=== PATIENT | female | born 1985 | race American Indian/Alaskan Native ===

== ENCOUNTER 2016-05-23 18:25 | Emergency (ER) | payer SELFPAY ==
[2016-05-23 19:15] LABS: Basophils % (Auto) 0.6 % (0.0-1.8); Eosinophils % (Auto) 0.9 % (0.0-4.3); Hematocrit 35.3 % (30.3-42.9); Mean Corpuscular HGB Conc 31 % (30-34); Mean Corpuscular Volume 73 fl (79-97); Platelet Count 460 K/mm3 (140-440); Red Blood Count 4.83 M/mm3 (3.65-5.03); Red Cell Distribution Width 16.7 % (13.2-15.2); White Blood Count 7.8 K/mm3 (4.5-11.0)
[2016-05-23 19:16] LABS: Mean Corpuscular Hemoglobin 23 pg (28-32)
[2016-05-23 19:37] LABS: Alanine Aminotransferase 30 units/L (7-56); Albumin 4.1 g/dL (3.9-5); Albumin/Globulin Ratio 1.2 %; Alkaline Phosphatase 96 units/L (35-129); Bilirubin,Total 0.2 mg/dL (0.1-1.2); Blood Urea Nitrogen 9 mg/dL (7-17); Calcium 8.7 mg/dL (8.4-10.2); Carbon Dioxide 24 mmol/L (22-30); Glucose 101 mg/dL (65-100); Lipase 106 units/L (13-60); Total Protein 7.6 g/dL (6.3-8.2)
[2016-05-23 19:38] LABS: Anion Gap 18 mmol/L; Chloride 99.6 mmol/L (98-107); Sodium 138 mmol/L (137-145)
[2016-05-23 23:00] LABS: Bacteria,Urine 1+ /HPF (Negative); Bilirubin,Urine NEG (Negative); Blood,Urine NEG (Negative); Ketones,Urine NEG (Negative); Leukocyte Esterase,Urine NEG (Negative); Nitrite,Urine NEG (Negative); Protein,Urine <15 mg/dL mg/dL (Negative); RBC,Urine < 1.0 /HPF (0.0-6.0); Urobilinogen,Urine < 2.0 mg/dL (<2.0)
[2016-05-23 23:04] LABS: WBC,Urine < 1.0 /HPF (0.0-6.0)
[2016-05-24 01:27] VITALS: BP 124/79
[2016-05-24] MEDS ORDERED: DILAUDID IV ONE (01:48)
[2016-05-24] MEDS ORDERED: ZOFRAN IV ONE (01:48)
[2016-05-24] MEDS ORDERED: NACL 0.9% 1000 ML 1,000 ML IV ONE (01:49)
[2016-05-24] MEDS ORDERED: PROTONIX IV ONE (01:50)
[2016-05-24] MEDS ORDERED: BENADRYL IV ONE (03:16)
--- NOTE | 2016-05-24 05:18 | Emergency Department Report ---
ED Abdominal Pain HPI - General Chief Complaint: Abdominal Pain Stated Complaint: ABD PAIN/WRIST SWELLING Time Seen by Provider: 05/24/16 01:36 Source: patient Mode of arrival: Ambulatory Limitations: No Limitations - History of Present Illness Initial Comments: 30 yo female with past medical history GERD, pancreatitis, and alcohol abuse presents to the hospital complaining of epigastric pain, nausea, and vomiting. Pain to upper abdomen for the past week. Pain is intermittent, sore, radiates to the back. Rated 8/10 in intensity. Worse with palpation. Patient vomiting on and off. She noticed some blood-streaked vomitus yesterday. Denies melena, hematochezia, fever, or diarrhea. The pain of pancreatitis in the past. Patient is pancreatitis due to alcohol use. Patient states she has been under a lot of stress and did drink several days ago. No previous abdominal surgery. Patient taken Tylenol and Goody powders as stated for pain. Severity scale (0 -10): 4 - Related Data Previous Rx's Medication Instructions Recorded Last Taken Type HYDROcodone/APAP 5-325 [[place] 1 each PO Q6HR PRN #20 tablet 05/24/16 Unknown Rx 5/325] Omeprazole Magnesium [PriLOSEC Otc] 20 mg PO QDAY #30 tablet. 05/24/16 Unknown Rx Ondansetron [Zofran Odt] 4 mg PO Q8HR PRN #20 tab.rapdis 05/24/16 Unknown Rx Allergies Allergy/AdvReac Type Severity Reaction Status Date / Time No Known Allergies Allergy Verified 05/24/16 01:29 ED Review of Systems ROS: Stated complaint: ABD PAIN/WRIST SWELLING Other details as noted in HPI Comment: All other systems reviewed and negative Other: Constitutional: No fevers chills Eyes: No eye pain visual changes ENT: No ear pain or throat pain Neck: Denies pain Respiratory: Denies cough wheezing shortness of breath Cardiovascular: Denies chest pain, palpitations, syncope GI: as per hpi : Denies dysuria Musculoskeletal: Denies back pain Skin: Denies rash, lesions, erythema Neurologic: Denies headache, numbness, weakness Psychiatric: Denies suicidal ideation, hallucinations ED Past Medical Hx - Past Medical History Previous Medical History?: Yes Hx GERD: Yes Additional medical history: Pancreatitis - Surgical History Past Surgical History?: Yes Additional Surgical History: Removal of Bartholin cyst - Social History Smoking Status: Current Every Day Smoker Substance Use Type: Alcohol - Medications Home Medications: Home Medications Medication Instructions Recorded Confirmed Last Taken Type HYDROcodone/APAP 5-325 [[place] 1 each PO Q6HR PRN #20 tablet 05/24/16 Unknown Rx 5/325] Omeprazole Magnesium [PriLOSEC Otc] 20 mg PO QDAY #30 tablet. 05/24/16 Unknown Rx Ondansetron [Zofran Odt] 4 mg PO Q8HR PRN #20 tab.rapdis 05/24/16 Unknown Rx ED Physical Exam - General Limitations: No Limitations - Other Other exam information: General: No limitations, patient is alert in no acute distress Head exam: Atraumatic, normocephalic Eyes exam: Normal appearance, pupils equal reactive to light, extraocular movements intact ENT: Moist mucous membrane, normal oropharynx Neck exam: Normal inspection, full range of motion, no meningismus nontender Respiratory exam: Clear to auscultation bilateral, no wheezes, rales, crackles Cardiovascular: Normal rate and rhythm, normal heart sounds Abdomen: Soft, nondistended, epigastric tenderness, with normal bowel sounds, no rebound, or guarding Rectal: Guaiac negative brown stool Extremity: Full range of motion normal inspection no deformity Back: Normal Inspection, full range of motion, no tenderness Neurologic: Alert, oriented x3, cranial nerves intact, no motor or sensory deficit Psychiatric: normal affect, normal mood Skin: Warm, dry, intact ED Course Vital Signs 05/23/16 05/24/16 18:36 01:26 Temperature 98.4 F Pulse Rate 81 74 Respiratory 20 16 Rate Blood Pressure 139/79 Blood Pressure 124/79 [Left] O2 Sat by Pulse 100 95 Oximetry - Reevaluation(s) Reevaluation #1: 05/24/16 05:26 Patient treated with Dilaudid, Protonix, normal saline, Zofran. After receiving Dilaudid patient didn't stay she is allergic and was given Benadryl for itching. No signs of rash or airway compromise 05/24/16 05:27 ED Medical Decision Making - Lab Data Result diagrams: 05/23/16 18:54 05/23/16 18:54 Lab Results 05/23/16 05/23/16 05/23/16 Range/Units 18:54 18:54 21:30 WBC 7.8 (4.5-11.0) K/mm3 RBC 4.83 (3.65-5.03) M/mm3 Hgb 11.0 (10.1-14.3) gm/dl Hct 35.3 (30.3-42.9) % MCV 73 L (79-97) fl MCH 23 L (28-32) pg MCHC 31 (30-34) % RDW 16.7 H (13.2-15.2) % Plt Count 460 H (140-440) K/mm3 Lymph % (Auto) 28.5 (13.4-35.0) % [place]man % (Auto) 6.9 (0.0-7.3) % Eos % (Auto) 0.9 (0.0-4.3) % Baso % (Auto) 0.6 (0.0-1.8) % Lymph # 2.2 (1.2-5.4) K/mm3 Whitman # 0.5 (0.0-0.8) K/mm3 Eos # 0.1 (0.0-0.4) K/mm3 Baso # 0.0 (0.0-0.1) K/mm3 Seg Neutrophils % 63.1 (40.0-70.0) % Seg Neutrophils # 4.9 (1.8-7.7) K/mm3 Sodium 138 (137-145) mmol/L Potassium 4.0 (3.6-5.0) mmol/L Chloride 99.6 (98-107) mmol/L Carbon Dioxide 24 (22-30) mmol/L Anion Gap 18 mmol/L BUN 9 (7-17) mg/dL Creatinine 0.9 (0.7-1.2) mg/dL Estimated GFR > 60 ml/min BUN/Creatinine Ratio 10.00 % Glucose 101 H (65-100) mg/dL Calcium 8.7 (8.4-10.2) mg/dL Total Bilirubin 0.2 (0.1-1.2) mg/dL AST 22 (5-40) units/L ALT 30 (7-56) units/L Alkaline Phosphatase 96 (35-129) units/L Total Protein 7.6 (6.3-8.2) g/dL Albumin 4.1 (3.9-5) g/dL Albumin/Globulin Ratio 1.2 % Lipase 106 H (13-60) units/L Urine Color Colorless (Yellow) Urine Turbidity Clear (Clear) Urine pH 7.0 (5.0-7.0) Ur Specific [place] 1.001 L (1.003-1.030) Urine Protein <15 mg/dl (Negative) mg/dL Urine Glucose (UA) Neg (Negative) mg/dL Urine Ketones Neg (Negative) mg/dL Urine Blood Neg (Negative) Urine Nitrite Neg (Negative) Urine Bilirubin Neg (Negative) Urine Urobilinogen < 2.0 (<2.0) mg/dL Ur Leukocyte Esterase Neg (Negative) Urine WBC (Auto) < 1.0 (0.0-6.0) /HPF Urine RBC (Auto) < 1.0 (0.0-6.0) /HPF U Epithel Cells (Auto) < 1.0 (0-13.0) /HPF Urine Bacteria (Auto) 1+ (Negative) /HPF - Medical Decision Making Patient's lab work unremarkable with exception of slight elevation of lipase. Likely due to his chronic pancreatitis versus gastritis induced by alcohol. Patient advised to discontinue alcohol use. We'll treat symptomatically since vomiting is intermittent. Advised not to take NSAIDs or aspirin's - Differential Diagnosis pancreatitis, gastritis, hepatitis Critical Care Time: No Critical care attestation.: If time is entered above; I have spent that time in minutes in the direct care of this critically ill patient, excluding procedure time. ED Disposition Clinical Impression: Epigastric pain, Hx of pancreatitis, Alcohol abuse, Vomiting Disposition: DISCHARGED TO HOME OR SELFCARE Is pt being admited?: No Does the pt Need Aspirin: No Condition: Stable Instructions: Gastritis (ED), Pancreatitis (ED), Abuse of Alcohol (ED) Additional Instructions: Take the medication as needed. Return if symptoms worsen. Prescriptions: HYDROcodone/APAP 5-325 [[place] 5/325] 1 each PO Q6HR PRN #20 tablet PRN Reason: Pain Omeprazole Magnesium [PriLOSEC Otc] 20 mg PO QDAY #30 tablet. Ondansetron [Zofran Odt] 4 mg PO Q8HR PRN #20 tab.rapdis PRN Reason: Nausea And Vomiting Referrals: [facility] [Provider Group] - 3-5 Days DREW OROZCO MD [Staff Physician] - 3-5 Days RAHEL DUBON MD [Staff Physician] - 3-5 Days (GI doctor) Time of Disposition: 05:18
== END 2016-05-24 05:40 | disposition home or self-care (01) ==
LOC: ED 18:25
DX: R10.13 Epigastric pain (principal); R10.10 Upper abdominal pain, unspecified; R11.2 Nausea with vomiting, unspecified; K85.90 Acute pancreatitis without necrosis or infection, unspecified; K21.9 Gastro-esophageal reflux disease without esophagitis; F17.200 Nicotine dependence, unspecified, uncomplicated
CPT/HCPCS: 36415; 80053; 81001; 82271; 83690; 85025; 96361; 96374; 96375; 99283; C9113; J1170; J1200; J2405; J7030

== ENCOUNTER 2016-06-15 05:54 | Emergency (ER) | payer SELFPAY ==
[2016-06-15 07:01] LABS: Basophils % (Auto) 0.8 % (0.0-1.8); Eosinophils % (Auto) 2.6 % (0.0-4.3); Hematocrit 33.1 % (30.3-42.9); Hemoglobin 10.5 gm/dl (10.1-14.3); Mean Corpuscular HGB Conc 32 % (30-34); Mean Corpuscular Volume 72 fl (79-97); Platelet Count 462 K/mm3 (140-440); Red Blood Count 4.59 M/mm3 (3.65-5.03); Red Cell Distribution Width 17.3 % (13.2-15.2); White Blood Count 6.7 K/mm3 (4.5-11.0)
[2016-06-15 07:02] LABS: Mean Corpuscular Hemoglobin 23 pg (28-32)
[2016-06-15 07:15] LABS: Alanine Aminotransferase 30 units/L (7-56); Albumin 4.1 g/dL (3.9-5); Albumin/Globulin Ratio 1.2 %; Alkaline Phosphatase 94 units/L (35-129); Anion Gap 18 mmol/L; BUN/Creatinine Ratio 15.55; Bilirubin,Total 0.2 mg/dL (0.1-1.2); Blood Urea Nitrogen 14 mg/dL (7-17); Calcium 8.9 mg/dL (8.4-10.2); Carbon Dioxide 24 mmol/L (22-30); Chloride 102.4 mmol/L (98-107); Glucose 114 mg/dL (65-100); Lipase 114 units/L (13-60); Potassium 4.3 mmol/L (3.6-5.0); Sodium 140 mmol/L (137-145); Total Protein 7.5 g/dL (6.3-8.2)
[2016-06-15 08:01] LABS: Bacteria,Urine 2+ /HPF (Negative); Bilirubin,Urine NEG (Negative); Blood,Urine NEG (Negative); Ketones,Urine NEG (Negative); Leukocyte Esterase,Urine NEG (Negative); Mucus,Urine FEW /HPF; Nitrite,Urine NEG (Negative); Protein,Urine <15 mg/dL mg/dL (Negative); Urobilinogen,Urine < 2.0 mg/dL (<2.0)
[2016-06-15] MEDS ORDERED: NACL 0.9% 1000 ML 1,000 ML IV ONE (09:23)
[2016-06-15] MEDS ORDERED: MORPHINE IV ONE (09:23)
[2016-06-15] MEDS ORDERED: ZOFRAN IV ONE (09:26)
[2016-06-15 09:45] VITALS: BP 113/54
[2016-06-15] MEDS ORDERED: DILAUDID PO ONE (10:00)
[2016-06-15] MEDS ORDERED: ZOFRAN PO ONE (10:00)
[2016-06-15] MEDS ORDERED: NORCO 7.5/325 PO ONE (10:10)
[2016-06-15] MEDS ORDERED: ZOFRAN ODT ONE (10:23)
[2016-06-15] MEDS ORDERED: ZOFRAN ODT PO ONE (10:33)
--- NOTE | 2016-06-21 19:36 | Emergency Department Report ---
Entered by GUIDO GARCÍA, acting as scribe for VARGHESE ROSA PA. ED Abdominal Pain HPI - General Chief Complaint: Abdominal Pain Stated Complaint: ABDOMINAL PAIN Time Seen by Provider: 06/15/16 09:15 Source: patient Mode of arrival: Ambulatory Limitations: No Limitations - History of Present Illness Initial Comments: 30 y/o female with PMHx of pancreatitis, presents to the ED via EMS c/o epigastric abdominal pain beginning 3 days ago. The patient states the symptoms are similar to prior pancreatitis flares, and states she still consumes EtOH. Associated symptoms of nausea, vomiting, diarrhea, dizziness (like the room is "spinning"), chills, and throat congestion, but she denies chest pain, SOB, cough, fever, weakness, numbness, and syncope. Secondary c/o right foot pain and swelling beginning 2 days ago. The patient denies known acute trauma, but states she believes there is an abrasion on the bottom of the right foot. The patient denies having a PCP, stating that she just moved to this area 3 months ago. Re-evaluated patient. She does report that she has a history of psychosis and has not seen a mental health provider in a while. She reports that she was supposed to be on medication but not sure what the name of it. She will light for us to refer her to mental health as well. MD Complaint: abdominal pain -: days(s) (3 days ago) Location: epigastric Radiation: none Migration to: no migration Severity: moderate Consistency: constant Improves With: nothing Worsens With: nothing Context: other (patient has Hx of pancreatitis, continues to consume EtOH) Associated Symptoms: nausea, vomiting, diarrhea, chills, other (dizziness (like the room is spinning)). denies: fever, syncope - Related Data Previous Rx's Medication Instructions Recorded Last Taken Type HYDROcodone/APAP 5-325 [[place] 1 each PO Q6HR PRN #20 tablet 05/24/16 Unknown Rx 5/325] Omeprazole Magnesium [PriLOSEC Otc] 20 mg PO QDAY #30 tablet. 05/24/16 Unknown Rx Ondansetron [Zofran Odt] 4 mg PO Q8HR PRN #20 tab.deborah 05/24/16 Unknown Rx Ibuprofen [Motrin 600 MG tab] 600 mg PO Q8H PRN #30 tablet 06/15/16 Unknown Rx Allergies Allergy/AdvReac Type Severity Reaction Status Date / Time hydromorphone HCl Allergy Itching Verified 06/15/16 10:10 [From Dilaudid] phenazopyridine HCl Allergy Hives Verified 06/15/16 10:10 [From Pyridium] sulfamethoxazole Allergy Itching Verified 06/15/16 10:10 [From Bactrim] trimethoprim [From Bactrim] Allergy Itching Verified 06/15/16 10:10 ED Review of Systems Comment: All other systems reviewed and negative Constitutional: chills. denies: fever ENT: other ("throat congestion") Respiratory: denies: cough, shortness of breath Cardiovascular: denies: chest pain Gastrointestinal: abdominal pain (epigastric area), nausea, vomiting, diarrhea Musculoskeletal: other (right foot pain and swelling, possible abrasion to the bottom of the right foot) Skin: denies: rash Neurological: other (dizziness (described as the room spinning), denies syncope) . denies: weakness, numbness ED Past Medical Hx - Past Medical History Previous Medical History?: Yes Hx GERD: Yes Additional medical history: Pancreatitis - Surgical History Past Surgical History?: Yes Additional Surgical History: Removal of Bartholin cyst - Social History Smoking Status: Current Every Day Smoker Substance Use Type: Alcohol - Medications Home Medications: Home Medications Medication Instructions Recorded Confirmed Last Taken Type HYDROcodone/APAP 5-325 [[place] 1 each PO Q6HR PRN #20 tablet 05/24/16 Unknown Rx 5/325] Omeprazole Magnesium [PriLOSEC Otc] 20 mg PO QDAY #30 tablet. 05/24/16 Unknown Rx Ondansetron [Zofran Odt] 4 mg PO Q8HR PRN #20 tab.alexdis 05/24/16 Unknown Rx Ibuprofen [Motrin 600 MG tab] 600 mg PO Q8H PRN #30 tablet 06/15/16 Unknown Rx ED Physical Exam - General Limitations: No Limitations - Other Other exam information: ENERAL: Patient is alert and oriented x 3. No apparent distress, normal gait, atraumatic. HEAD: Head is normocephalic and atraumatic. EYES: Extraocular movements are intact. Pupils are equal, round, and reactive to light and accommodation. EARS: Symmetrical, atraumatic, non tender, ear canal clear with moderate cerumen , tympanic membrane non inflamed. Gross auditory nml bilaterally. NOSE: Nose symmetrical, nontender. Nares appeared normal. MOUTH:Mouth is well hydrated and without lesions. Mucous membranes are moist. Uvula midline. Tongue not elevated. Posterior pharynx clear, no exudate or lesions. Tonsils are not erythematous or swollen. Patent airway. NECK: Supple. Non edematous, no carotid bruits. No lymphadenopathy or thyromegaly. LUNGS: Symmetrical with respiration. No wheezing, rales or crackles, CTAB. HEART: Regular rate and rhythm with normal S1/S2 present. No murmurs, rubs, or gallops. ABDOMEN: Soft, nondistended. Diffusely tender with mild guarding. No rebound tenderness. No organomegaly was noted. Positive bowel sounds. No CVA tenderness. EXTREMITIES/MUSCULOSKELETAL: Full ROM bilaterally. UE/LE Pulses 2+ bilaterally. LE and UE 5+ strength bilaterally SKIN: Warm and dry. No lesions, ulceration or induration present. Noted there is swelling and warmth to the right foot, but no crepitus or fluctuance. No open wound and no abrasion or laceration at the site. There is a skin crease on the bottom of the right foot where the patient believes there is an open wound. NEUROLOGIC: No focal deficit., ED Course Vital Signs 06/15/16 06/15/16 06:00 09:45 Temperature 97.9 F 98 F Pulse Rate 98 H 84 Respiratory 18 18 Rate Blood Pressure 132/75 113/54 [Right] O2 Sat by Pulse 100 98 Oximetry ED Medical Decision Making - Lab Data Result diagrams: 06/15/16 06:46 06/15/16 06:46 - Medical Decision Making Patient was evaluated by the provider in fast track. 30 y/o female presents to the ED c/o epigastric abdominal pain beginning 3 days ago. The patient states the current symptoms are consistent with prior pancreatitis flareups. The patient's labs show Discussed with the patient the need to follow up with a PCP as referred, and to return to the ED if the patient's symptoms worsen or return. Patient states understanding and will follow instructions. Vital signs stable, patient is in no acute distress. ED Disposition Clinical Impression: Elevated lipase Abdominal pain Qualifiers: Abdominal location: epigastric Qualified Code(s): R10.13 - Epigastric pain Disposition: DISCHARGED TO HOME OR SELFCARE Is pt being admited?: No Does the pt Need Aspirin: No Condition: Stable Instructions: Abdominal Pain (ED) Prescriptions: Ibuprofen [Motrin 600 MG tab] 600 mg PO Q8H PRN #30 tablet PRN Reason: Pain Referrals: PRIMARY CARE, [Primary Care Provider] - 3-5 Days [facility] [Outside] - 3-5 Days [facility] [Outside] - 3-5 Days [facility] [Provider Group] - 3-5 Days [facility] [Provider Group] - 3-5 Days This documentation as recorded by the RAQUEL martínez GRACE,accurately reflects the service I personally performed and the decisions made by me,VARGHESE ROSA PA.
== END 2016-06-15 11:23 | disposition home or self-care (01) ==
LOC: ED 05:54
DX: R74.8 Abnormal levels of other serum enzymes (principal); R10.13 Epigastric pain; K21.9 Gastro-esophageal reflux disease without esophagitis; F17.200 Nicotine dependence, unspecified, uncomplicated
CPT/HCPCS: 36415; 80053; 81001; 83690; 84703; 85025; 99283; Q0162; J2270; J2405; J7030

== ENCOUNTER 2016-06-24 08:19 | Emergency (ER) | payer SELFPAY ==
[2016-06-24 08:54] VITALS: BP 125/77
[2016-06-24 09:20] LABS: Urine Drugs of Abuse Note Disclamer
[2016-06-24 09:29] LABS: Bacteria,Urine 1+ /HPF (Negative); Bilirubin,Urine NEG (Negative); Blood,Urine NEG (Negative); Ketones,Urine NEG (Negative); Leukocyte Esterase,Urine NEG (Negative); Mucus,Urine FEW /HPF; Nitrite,Urine NEG (Negative); Protein,Urine <15 mg/dL mg/dL (Negative); Urobilinogen,Urine < 2.0 mg/dL (<2.0)
== END 2016-06-24 09:12 | disposition left against medical advice (07) ==
LOC: EEVIPCON 08:19 → ED 08:19
DX: R10.9 Unspecified abdominal pain (principal); R11.10 Vomiting, unspecified; R44.0 Auditory hallucinations; Z53.21 Procedure and treatment not carried out due to patient leaving prior to being seen by health care provider
CPT/HCPCS: 80307; 81001

== ENCOUNTER 2016-07-21 09:20 | Emergency (ER) | payer SELFPAY ==
[2016-07-21 09:33] VITALS: BP 124/76
[2016-07-21 10:26] LABS: Basophils % (Auto) 0.5 % (0.0-1.8); Eosinophils % (Auto) 1.3 % (0.0-4.3); Hematocrit 32.3 % (30.3-42.9); Hemoglobin 9.9 gm/dl (10.1-14.3); Mean Corpuscular HGB Conc 31 % (30-34); Mean Corpuscular Hemoglobin 22 pg (28-32); Mean Corpuscular Volume 71 fl (79-97); Platelet Count 449 K/mm3 (140-440); Red Blood Count 4.58 M/mm3 (3.65-5.03); Red Cell Distribution Width 18.2 % (13.2-15.2); White Blood Count 8.7 K/mm3 (4.5-11.0)
[2016-07-21 10:40] LABS: Bacteria,Urine 1+ /HPF (Negative); Bilirubin,Urine NEG (Negative); Blood,Urine NEG (Negative); Ketones,Urine NEG (Negative); Leukocyte Esterase,Urine NEG (Negative); Mucus,Urine FEW /HPF; Nitrite,Urine NEG (Negative); Protein,Urine <15 mg/dL mg/dL (Negative); Urobilinogen,Urine < 2.0 mg/dL (<2.0)
[2016-07-21 10:42] LABS: Alanine Aminotransferase 50 units/L (7-56); Albumin 3.8 g/dL (3.9-5); Albumin/Globulin Ratio 1.2 %; Alkaline Phosphatase 93 units/L (35-129); Anion Gap 18 mmol/L; BUN/Creatinine Ratio 21.11; Bilirubin,Total < 0.2 mg/dL (0.1-1.2); Blood Urea Nitrogen 19 mg/dL (7-17); Calcium 8.7 mg/dL (8.4-10.2); Carbon Dioxide 22 mmol/L (22-30); Glucose 102 mg/dL (65-100); Lipase 104 units/L (13-60); Potassium 4.6 mmol/L (3.6-5.0); Sodium 138 mmol/L (137-145)
== END 2016-07-21 10:21 | disposition left against medical advice (07) ==
LOC: ED 09:20
DX: R10.9 Unspecified abdominal pain (principal); R11.2 Nausea with vomiting, unspecified; R51 Headache; M54.6 Pain in thoracic spine; Z53.21 Procedure and treatment not carried out due to patient leaving prior to being seen by health care provider
CPT/HCPCS: 36415; 80053; 81001; 81025; 83690; 85025

== ENCOUNTER 2017-05-14 08:20 | Emergency (ER) | payer OTHER ==
[2017-05-14 09:30] LABS: Basophils % (Auto) 0.5 % (0.0-1.8); Eosinophils # (Auto) 0.1 K/mm3 (0.0-0.4); Eosinophils % (Auto) 1.5 % (0.0-4.3); Hematocrit 37.1 % (30.3-42.9); Hemoglobin 11.5 gm/dl (10.1-14.3); Lymphocytes # (Auto) 2.4 K/mm3 (1.2-5.4); Lymphocytes % (Auto) 32.9 % (13.4-35.0); Mean Corpuscular HGB Conc 31 % (30-34); Mean Corpuscular Volume 77 fl (79-97); Monocytes # (Auto) 0.4 K/mm3 (0.0-0.8); Monocytes % (Auto) 6.1 % (0.0-7.3); Platelet Count 396 K/mm3 (140-440); Red Cell Distribution Width 18.2 % (13.2-15.2)
[2017-05-14 09:31] LABS: Mean Corpuscular Hemoglobin 24 pg (28-32)
[2017-05-14 09:44] LABS: Alanine Aminotransferase 98 units/L (7-56); Albumin 4.2 g/dL (3.9-5); BUN/Creatinine Ratio 17; Blood Urea Nitrogen 15 mg/dL (7-17); Calcium 9.3 mg/dL (8.4-10.2); Hemolysis Index 6; Lipase 82 units/L (13-60)
[2017-05-14 11:31] LABS: Bacteria,Urine 2+ /HPF (Negative); Bilirubin,Urine NEG (Negative); Blood,Urine MOD (Negative); Color,Urine Yellow (Yellow); Mucus,Urine 2+ /HPF; Nitrite,Urine POS (Negative); Protein,Urine <15 mg/dL mg/dL (Negative); Urobilinogen,Urine < 2.0 mg/dL (<2.0)
[2017-05-14 11:32] LABS: HCG Qualitative,Urine Negative (Negative)
[2017-05-14] MEDS ORDERED: TORADOL IM ONE (13:33)
--- NOTE | 2017-05-14 13:37 | Emergency Department Report ---
ED Abdominal Pain HPI - General Chief Complaint: Abdominal Pain Stated Complaint: ABD PAIN Time Seen by Provider: 05/14/17 12:57 Source: patient Mode of arrival: Ambulatory Limitations: No Limitations - History of Present Illness Initial Comments: Patient is 31 years old female history of pancreatitis secondary to alcohol abuse. Patient presented with epigastric pain that started this morning radiated to her back patient stated that she drink 1 beer last night. Patient denied any fever nausea vomiting no diarrhea. Patient also stated that she's been having vaginal bleeding for the last 3 weeks. Some lower abdominal pain patient denied any vaginal discharge. No urinary symptoms. MD Complaint: abdominal pain -: This morning Location: epigastric Radiation: back Quality: sharp Improves With: nothing Associated Symptoms: denies other symptoms - Related Data Previous Rx's Medication Instructions Recorded Last Taken Type HYDROcodone/APAP 5-325 [[place] 1 each PO Q6HR PRN #20 tablet 05/24/16 Unknown Rx 5/325] Omeprazole Magnesium [PriLOSEC Otc] 20 mg PO QDAY #30 tablet. 05/24/16 Unknown Rx Ondansetron [Zofran Odt] 4 mg PO Q8HR PRN #20 tab.rapdis 05/24/16 Unknown Rx Ibuprofen [Motrin 600 MG tab] 600 mg PO Q8H PRN #30 tablet 06/15/16 Unknown Rx Allergies Allergy/AdvReac Type Severity Reaction Status Date / Time hydromorphone HCl Allergy Itching Verified 06/15/16 10:10 [From Dilaudid] phenazopyridine HCl Allergy Hives Verified 06/15/16 10:10 [From Pyridium] sulfamethoxazole Allergy Itching Verified 06/15/16 10:10 [From Bactrim] trimethoprim [From Bactrim] Allergy Itching Verified 06/15/16 10:10 ED Review of Systems ROS: Stated complaint: ABD PAIN Other details as noted in HPI Comment: All other systems reviewed and negative Constitutional: denies: chills, fever Respiratory: denies: cough, orthopnea, shortness of breath, SOB with exertion, SOB at rest, wheezing Cardiovascular: denies: chest pain, palpitations, dyspnea on exertion Gastrointestinal: abdominal pain. denies: nausea, vomiting, diarrhea, constipation, hematemesis, melena, hematochezia Genitourinary: abnormal menses. denies: urgency Neurological: denies: headache, weakness, numbness, paresthesias ED Past Medical Hx - Past Medical History Previous Medical History?: Yes Hx GERD: Yes Hx Psychiatric Treatment: Yes Additional medical history: Pancreatitis - Surgical History Past Surgical History?: Yes Additional Surgical History: Removal of Bartholin cyst - Social History Smoking Status: Former Smoker Substance Use Type: Alcohol, Prescribed - Medications Home Medications: Home Medications Medication Instructions Recorded Confirmed Last Taken Type HYDROcodone/APAP 5-325 [[place] 1 each PO Q6HR PRN #20 tablet 05/24/16 Unknown Rx 5/325] Omeprazole Magnesium [PriLOSEC Otc] 20 mg PO QDAY #30 tablet. 05/24/16 Unknown Rx Ondansetron [Zofran Odt] 4 mg PO Q8HR PRN #20 tab.rapjacqueline 05/24/16 Unknown Rx Ibuprofen [Motrin 600 MG tab] 600 mg PO Q8H PRN #30 tablet 06/15/16 Unknown Rx ED Physical Exam - General Limitations: No Limitations General appearance: alert, in no apparent distress - Head Head exam: Present: atraumatic, normocephalic, normal inspection - Eye Eye exam: Present: normal appearance, PERRL - ENT ENT exam: Present: normal exam, normal orophraynx, mucous membranes moist - Respiratory Respiratory exam: Present: normal lung sounds bilaterally. Absent: respiratory distress, wheezes, rales, rhonchi, stridor, chest wall tenderness, accessory muscle use, decreased breath sounds, prolonged expiratory - Cardiovascular Cardiovascular Exam: Present: regular rate, normal rhythm, normal heart sounds - GI/Abdominal GI/Abdominal exam: Present: soft, tenderness (epigastric tenderness), normal bowel sounds. Absent: distended, guarding, rebound, rigid, organomegaly, mass, bruit, pulsatile mass - Extremities Exam Extremities exam: Present: normal inspection, full ROM, normal capillary refill - Back Exam Back exam: Present: normal inspection, full ROM. Absent: tenderness, CVA tenderness (R), CVA tenderness (L), muscle spasm, paraspinal tenderness - Neurological Exam Neurological exam: Present: alert, oriented X3, CN II-XII intact, normal gait - Skin Skin exam: Present: warm, intact, normal color. Absent: cyanosis, diaphoretic, erythema ED Course Vital Signs 05/14/17 08:53 Temperature 97.4 F L Pulse Rate 98 H Respiratory 18 Rate Blood Pressure 132/92 O2 Sat by Pulse 100 Oximetry - Reevaluation(s) Reevaluation #1: 05/14/17 16:23 Patient stated that she is feeling much better now, no abdominal pain, no nausea or vomiting. ED Medical Decision Making - Lab Data Result diagrams: 05/14/17 09:11 05/14/17 09:11 Critical care attestation.: If time is entered above; I have spent that time in minutes in the direct care of this critically ill patient, excluding procedure time. ED Disposition Clinical Impression: Pancreatitis, Pelvic pain, Vaginal bleeding Disposition: DC-01 TO HOME OR SELFCARE Is pt being admited?: No Condition: Stable Instructions: Abdominal Pain (ED), Dysfunctional Uterine Bleeding (ED) Referrals: PRIMARY CARE, [Primary Care Provider] - 3-5 Days
--- NOTE | 2017-05-14 15:44 | Ultrasound Report ---
FINAL REPORT PROCEDURE: US transabdominal and TRANSVAGINAL TECHNIQUE: Real-time transabdominal sonography in multiple planes of the pelvis was performed. The pelvic structures, especially the ovaries were not optimally visualized. Transvaginal sonography was then performed to better evaluate the structures and/or abnormalities described below with image documentation. CPT 17233 and 51869 HISTORY: pelvic pain COMPARISON: No prior studies are available for comparison. FINDINGS: UTERUS Size: 8.8 x 3.3 x 3.6 cm. Endometrial thickness: 14.3 mm. Orientation: anteverted. Cervix: Normal. Fibroids/masses: None. RIGHT Ovary: 2.6 x 1.6 x 2.4 cm. Appearance: Normal. LEFT Ovary: 4.0 x 2.0 x 3.0 cm. Appearance: There is a rounded hypoechoic lesion, likely a complex cyst. This measures 1.4 x 1.2 x 1.4 centimeters. Pelvic fluid: Small amount present. Other: None. IMPRESSION: 1.4 centimeter complex left ovarian cyst. Endometrium is at the upper limit of normal in thickness. Recommend follow-up ultrasound to ensure resolution. If there is concern for endometrial disease, hysterosonogram could be obtained.
--- NOTE | 2017-05-14 15:44 | Ultrasound Report ---
FINAL REPORT PROCEDURE: US transabdominal and TRANSVAGINAL TECHNIQUE: Real-time transabdominal sonography in multiple planes of the pelvis was performed. The pelvic structures, especially the ovaries were not optimally visualized. Transvaginal sonography was then performed to better evaluate the structures and/or abnormalities described below with image documentation. CPT 62272 and 05887 HISTORY: pelvic pain COMPARISON: No prior studies are available for comparison. FINDINGS: UTERUS Size: 8.8 x 3.3 x 3.6 cm. Endometrial thickness: 14.3 mm. Orientation: anteverted. Cervix: Normal. Fibroids/masses: None. RIGHT Ovary: 2.6 x 1.6 x 2.4 cm. Appearance: Normal. LEFT Ovary: 4.0 x 2.0 x 3.0 cm. Appearance: There is a rounded hypoechoic lesion, likely a complex cyst. This measures 1.4 x 1.2 x 1.4 centimeters. Pelvic fluid: Small amount present. Other: None. IMPRESSION: 1.4 centimeter complex left ovarian cyst. Endometrium is at the upper limit of normal in thickness. Recommend follow-up ultrasound to ensure resolution. If there is concern for endometrial disease, hysterosonogram could be obtained. PROCEDURE: TECHNIQUE: HISTORY: COMPARISON: FINDINGS: IMPRESSION:
[2017-05-14] MEDS ORDERED: ZOFRAN IM ONE (15:55)
[2017-05-14] MEDS ORDERED: MORPHINE IM ONE (15:55)
[2017-05-14 16:51] VITALS: BP 130/92
== END 2017-05-14 16:50 | disposition home or self-care (01) ==
LOC: ED 08:20
DX: K85.90 Acute pancreatitis without necrosis or infection, unspecified (principal); N93.9 Abnormal uterine and vaginal bleeding, unspecified; R10.2 Pelvic and perineal pain; K21.9 Gastro-esophageal reflux disease without esophagitis; Z87.891 Personal history of nicotine dependence; Z88.5 Allergy status to narcotic agent; Z88.2 Allergy status to sulfonamides; Z88.8 Allergy status to other drugs, medicaments and biological substances
CPT/HCPCS: 36415; 76830; 76856; 80053; 81001; 81025; 83690; 85025; 96372; 99284; J1885; J2270; J2405

== ENCOUNTER 2017-05-28 08:20 | Emergency (ER) | payer SELFPAY ==
[2017-05-28 09:22] LABS: Basophils # (Auto) 0.1 K/mm3 (0.0-0.1); Basophils % (Auto) 0.9 % (0.0-1.8); Eosinophils # (Auto) 0.1 K/mm3 (0.0-0.4); Eosinophils % (Auto) 1.4 % (0.0-4.3); Hematocrit 38.9 % (30.3-42.9); Lymphocytes # (Auto) 2.7 K/mm3 (1.2-5.4); Lymphocytes % (Auto) 35.1 % (13.4-35.0); Mean Corpuscular HGB Conc 31 % (30-34); Mean Corpuscular Hemoglobin 24 pg (28-32); Mean Corpuscular Volume 78 fl (79-97); Monocytes # (Auto) 0.4 K/mm3 (0.0-0.8); Monocytes % (Auto) 5.3 % (0.0-7.3); Platelet Count 325 K/mm3 (140-440); Red Blood Count 5.01 M/mm3 (3.65-5.03); Red Cell Distribution Width 18.4 % (13.2-15.2)
[2017-05-28 09:43] LABS: Alanine Aminotransferase 89 units/L (7-56); Albumin 4.1 g/dL (3.9-5); BUN/Creatinine Ratio 13; Blood Urea Nitrogen 10 mg/dL (7-17); Calcium 8.8 mg/dL (8.4-10.2); Hemolysis Index 40; Lipase 77 units/L (13-60)
[2017-05-28 10:33] LABS: Bilirubin,Urine NEG (Negative); Blood,Urine LG (Negative); Color,Urine Yellow (Yellow); Mucus,Urine FEW /HPF; Urobilinogen,Urine < 2.0 mg/dL (<2.0)
[2017-05-28 10:34] LABS: RBC,Urine > 182.0 /HPF (0.0-6.0)
--- NOTE | 2017-05-28 10:41 | Emergency Department Report ---
ED Abdominal Pain HPI - General Chief Complaint: Abdominal Pain Stated Complaint: HAND SWELLING/UPPER RIGHT ABD PAIN Time Seen by Provider: 05/28/17 10:40 Source: patient Mode of arrival: Ambulatory Limitations: No Limitations - History of Present Illness Initial Comments: Patient states that she's had intermittent abdominal pain for over a year. She was here on May 24 and admits that she denied any abdominal pain when she was here for an unrelated complaint on the physician's review of systems. She states the abdominal pain is not related to eating and is intermittent in nature. She has not been vomiting she denies diarrhea. She denies back pain. She states that she has no symptoms. However a gentleman that is with her states that she has hesitancy of urination. She denies previous diagnosis of UTI or kidney stone. She also complains of some intermittent left hand swelling and various other joints that are intermittently painful. She states that she does a lot of work with her left arm. She denies any breast lump or mass. She has no local physician and has been going to the emergency department now twice in a month. She denies any respiratory symptoms no cough and no fever.the patient states that when she is on a diet her abdomen enlarges. Patient states she has an appointment with primary care physician on July 04. She did not want to wait. MD Complaint: abdominal pain -: year(s) Location: epigastric Radiation: none Severity: mild Quality: aching Consistency: intermittent, now resolved Improves With: nothing Worsens With: nothing Associated Symptoms: denies other symptoms - Related Data Previous Rx's Medication Instructions Recorded Last Taken Type HYDROcodone/APAP 5-325 [[place] 1 each PO Q6HR PRN #20 tablet 05/24/16 Unknown Rx 5/325] Omeprazole Magnesium [PriLOSEC Otc] 20 mg PO QDAY #30 tablet. 05/24/16 Unknown Rx Ondansetron [Zofran Odt] 4 mg PO Q8HR PRN #20 tab.deborah 05/24/16 Unknown Rx Ibuprofen [Motrin 600 MG tab] 600 mg PO Q8H PRN #30 tablet 06/15/16 Unknown Rx Ondansetron [Zofran Odt] 4 mg PO Q8HR PRN #14 tab.deborah 05/14/17 Unknown Rx medroxyPROGESTERone ACETATE 10 mg PO QDAY #10 tablet 05/14/17 Unknown Rx [Provera] traMADol [Ultram 50 MG tab] 50 mg PO Q4HR PRN #14 tablet 05/14/17 Unknown Rx Nitrofurantoin Monohyd/M-Cryst 100 mg PO BID #20 capsule 05/28/17 Unknown Rx [Macrobid 100 mg Capsule] traMADol [Ultram] 50 mg PO Q6HR PRN #14 tablet 05/28/17 Unknown Rx Allergies Allergy/AdvReac Type Severity Reaction Status Date / Time hydromorphone HCl Allergy Itching Verified 06/15/16 10:10 [From Dilaudid] phenazopyridine HCl Allergy Hives Verified 06/15/16 10:10 [From Pyridium] sulfamethoxazole Allergy Itching Verified 06/15/16 10:10 [From Bactrim] trimethoprim [From Bactrim] Allergy Itching Verified 06/15/16 10:10 Contrast Allergy Rash Uncoded 05/28/17 08:29 ED Review of Systems ROS: Stated complaint: HAND SWELLING/UPPER RIGHT ABD PAIN Other details as noted in HPI Constitutional: denies: chills, fever Eyes: denies: eye pain, eye discharge, vision change ENT: denies: ear pain, throat pain Respiratory: denies: cough, shortness of breath, wheezing Cardiovascular: denies: chest pain, palpitations Endocrine: no symptoms reported Gastrointestinal: denies: abdominal pain, nausea, diarrhea Genitourinary: denies: urgency, dysuria, discharge Musculoskeletal: as per HPI, other. 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 - Surgical History Past Surgical History?: Yes Additional Surgical History: Removal of Bartholin cyst - Social History Smoking Status: Former Smoker Substance Use Type: Alcohol, Prescribed - Medications Home Medications: Home Medications Medication Instructions Recorded Confirmed Last Taken Type HYDROcodone/APAP 5-325 [[place] 1 each PO Q6HR PRN #20 tablet 05/24/16 Unknown Rx 5/325] Omeprazole Magnesium [PriLOSEC Otc] 20 mg PO QDAY #30 tablet. 05/24/16 Unknown Rx Ondansetron [Zofran Odt] 4 mg PO Q8HR PRN #20 tab.rapdis 05/24/16 Unknown Rx Ibuprofen [Motrin 600 MG tab] 600 mg PO Q8H PRN #30 tablet 06/15/16 Unknown Rx Ondansetron [Zofran Odt] 4 mg PO Q8HR PRN #14 tab.rapdis 05/14/17 Unknown Rx medroxyPROGESTERone ACETATE 10 mg PO QDAY #10 tablet 05/14/17 Unknown Rx [Provera] traMADol [Ultram 50 MG tab] 50 mg PO Q4HR PRN #14 tablet 05/14/17 Unknown Rx Nitrofurantoin Monohyd/M-Cryst 100 mg PO BID #20 capsule 05/28/17 Unknown Rx [Macrobid 100 mg Capsule] traMADol [Ultram] 50 mg PO Q6HR PRN #14 tablet 05/28/17 Unknown Rx ED Physical Exam - General Limitations: No Limitations General appearance: alert, in no apparent distress - Head Head exam: Present: atraumatic, normocephalic - Eye Eye exam: Present: normal appearance, PERRL, EOMI. Absent: scleral icterus - ENT ENT exam: Present: mucous membranes moist - Neck Neck exam: Present: normal inspection. Absent: tenderness, meningismus - Respiratory Respiratory exam: Present: normal lung sounds bilaterally. Absent: respiratory distress - Cardiovascular Cardiovascular Exam: Present: regular rate, normal rhythm. Absent: systolic murmur, diastolic murmur, rubs, gallop - GI/Abdominal GI/Abdominal exam: Present: soft, normal bowel sounds. Absent: distended, tenderness, guarding, rebound, rigid, organomegaly, mass, bruit, pulsatile mass , hernia - Back Exam Back exam: Present: normal inspection. Absent: CVA tenderness (R), CVA tenderness (L), muscle spasm, paraspinal tenderness, vertebral tenderness - Neurological Exam Neurological exam: Present: alert, oriented X3, CN II-XII intact. Absent: motor sensory deficit - Psychiatric Psychiatric exam: Present: normal affect, normal mood - Skin Skin exam: Present: warm, dry, intact, normal color. Absent: rash ED Course Vital Signs 05/28/17 05/28/17 05/28/17 08:29 10:01 10:02 Temperature 97.5 F L Pulse Rate 109 H 97 H 95 H Respiratory 18 11 L 28 H Rate Blood Pressure 139/93 134/95 O2 Sat by Pulse 100 100 Oximetry 05/28/17 05/28/17 10:03 10:06 Temperature Pulse Rate 90 Respiratory 18 22 Rate Blood Pressure 134/95 O2 Sat by Pulse 100 97 Oximetry - Reevaluation(s) Reevaluation #1: The patient does present with multiple recurrent complaints. She is found to have a significant UTI. She is begun on antibiotics. She is referred to the outpatient setting for further evaluation. 05/28/17 11:35 ED Medical Decision Making - Lab Data Result diagrams: 05/28/17 08:55 05/28/17 08:55 Laboratory Results - last 24 hr 05/28/17 05/28/17 05/28/17 08:55 08:55 08:55 WBC 7.6 RBC 5.01 Hgb 12.0 Hct 38.9 MCV 78 L MCH 24 L MCHC 31 RDW 18.4 H Plt Count 325 Lymph % (Auto) 35.1 H [place] % (Auto) 5.3 Eos % (Auto) 1.4 Baso % (Auto) 0.9 Lymph # 2.7 [place] # 0.4 Eos # 0.1 Baso # 0.1 Seg Neutrophils % 57.3 Seg Neutrophils # 4.3 Sodium 136 L Potassium 4.4 Chloride 98.6 Carbon Dioxide 21 L Anion Gap 21 BUN 10 Creatinine 0.8 Estimated GFR > 60 BUN/Creatinine Ratio 13 Glucose 86 Calcium 8.8 Total Bilirubin 0.20 AST 65 H ALT 89 H Alkaline Phosphatase 137 H Total Protein 8.0 Albumin 4.1 Albumin/Globulin Ratio 1.1 Amylase 79 Lipase 77 H HCG, Qual Negative Urine Color Urine Turbidity Urine pH Ur Specific [place] Urine Protein Urine Glucose (UA) Urine Ketones Urine Blood Urine Nitrite Urine Bilirubin Urine Urobilinogen Ur Leukocyte Esterase Urine WBC (Auto) Urine RBC (Auto) U Epithel Cells (Auto) Urine WBC Clumps Urine Mucus 05/28/17 10:10 WBC RBC Hgb Hct MCV MCH MCHC RDW Plt Count Lymph % (Auto) [place] % (Auto) Eos % (Auto) Baso % (Auto) Lymph # [place] # Eos # Baso # Seg Neutrophils % Seg Neutrophils # Sodium Potassium Chloride Carbon Dioxide Anion Gap BUN Creatinine Estimated GFR BUN/Creatinine Ratio Glucose Calcium Total Bilirubin AST ALT Alkaline Phosphatase Total Protein Albumin Albumin/Globulin Ratio Amylase Lipase HCG, Qual Urine Color Yellow Urine Turbidity Cloudy Urine pH 6.0 Ur Specific [place] 1.015 Urine Protein 30 mg/dl Urine Glucose (UA) Neg Urine Ketones Neg Urine Blood Lg Urine Nitrite Pos Urine Bilirubin Neg Urine Urobilinogen < 2.0 Ur Leukocyte Esterase Neg Urine WBC (Auto) 46.0 H Urine RBC (Auto) > 182.0 U Epithel Cells (Auto) 9.0 Urine WBC Clumps 2+ Urine Mucus Few Critical care attestation.: If time is entered above; I have spent that time in minutes in the direct care of this critically ill patient, excluding procedure time. ED Disposition Clinical Impression: Hand edema Acute cystitis Qualifiers: Hematuria presence: with hematuria Qualified Code(s): N30.01 - Acute cystitis with hematuria Abdominal pain Qualifiers: Abdominal location: epigastric Qualified Code(s): R10.13 - Epigastric pain Disposition: [id number] PSY HOSP/PSY UNIT Is pt being admited?: No Does the pt Need Aspirin: No Condition: Stable Instructions: Abdominal Pain (ED), Urinary Tract Infection in Women (ED) Additional Instructions: Dr. Marcelo is a stove tender, Dr. Lewis is a family physician. [facility] is a primary care clinic. Follow-up is indicated. Particularly follow-up on her urine culture that will be ready in 2-3 days. Rx as directed. Return to the emergency department any acute change or problem. Elevate hand and avoid excessive use of arm for the next few days. Return to the emergency department as needed. Prescriptions: Nitrofurantoin Monohyd/M-Cryst [Macrobid 100 mg Capsule] 100 mg PO BID #20 capsule traMADol [Ultram] 50 mg PO Q6HR PRN #14 tablet PRN Reason: Pain Referrals: PRIMARY CARE, [Primary Care Provider] - 3-5 Days SRINIVAS MARCELO MD [Staff Physician] - 3-5 Days CHICA LEWIS MD [Staff Physician] - 3-[address] [facility] [Provider Group] - 2-3 Days Time of Disposition: 11:37
[2017-05-28] MEDS ORDERED: XYLOCAINE 1% MPF 5 mL INFILTRATI ONE ×2 (11:43→11:46)
[2017-05-28] MEDS ORDERED: ROCEPHIN IM ONE ×2 (11:43→11:46)
[2017-05-28] MEDS ORDERED: ULTRAM PO ONE ×2 (11:43→11:46)
[2017-05-28 12:27] VITALS: BP 130/87
== END 2017-05-28 12:37 ==
LOC: ED 08:20
DX: N30.01 Acute cystitis with hematuria (principal); R10.13 Epigastric pain; R60.9 Edema, unspecified; K21.9 Gastro-esophageal reflux disease without esophagitis
CPT/HCPCS: 36415; 80053; 81001; 82150; 83690; 84703; 85025; 96372; 99283; J0696